=== PATIENT | male | born 1945 | race Caucasian/White ===

== ENCOUNTER → 2016-07-07 | Outpatient (CLI) | payer MEDICARE, OTHER ==
[2016-07-07 09:28] LABS: ABSOLUTE EOSINOPHILS # (AUTO) 0.2 10^3/uL (0.0-0.6); ABSOLUTE LYMPHOCYTES (AUTO) 1.1 10^3/uL (0.5-4.7); ABSOLUTE MONOCYTES (AUTO) 0.6 10^3/uL (0.1-1.4); BASOPHILS % (AUTO) 0.7 % (0-2); EOSINOPHILS % (AUTO) 4.2 % (0-6); HEMATOCRIT 35.4 % (37.9-51.0); HEMOGLOBIN 12.2 g/dL (13.5-17.0); HGB HCT DIFFERENCE 1.2; LYMPHOCYTES % (AUTO) 22.9 % (13-45); MEAN CORPUSCULAR HEMOGLOBIN 30.7 pg (27.0-33.4); MEAN CORPUSCULAR HGB CONC 34.4 g/dL (32.0-36.0); MEAN CORPUSCULAR VOLUME 89 fl (80-97); MONOCYTES % (AUTO) 11.2 % (3-13); RED BLOOD COUNT 3.98 10^6/uL (4.35-5.55); RED CELL DISTRIBUTION WIDTH 14.3 % (11.5-14.0); WHITE BLOOD COUNT 4.9 10^3/uL (4.0-10.5)
[2016-07-07 10:05] LABS: ALANINE AMINOTRANSFERASE 27 U/L (21-72); ALBUMIN 4.7 g/dL (3.5-5.0); ALKALINE PHOSPHATASE 47 U/L (38-126); ANION GAP 13 (5-19); ASPARTATE AMINO TRANSFERASE 30 U/L (17-59); BILIRUBIN,DIRECT 0.3 mg/dL (0.0-0.4); BILIRUBIN,TOTAL 0.7 mg/dL (0.2-1.3); BLOOD UREA NITROGEN 14 mg/dL (7-20); CALCIUM 9.7 mg/dL (8.4-10.2); CARBON DIOXIDE 27 mmol/L (22-30); CHLORIDE 101 mmol/L (98-107); CHOLESTEROL 141.28 mg/dL (0-200); CREATININE RESULT 1.05 mg/dL (0.52-1.25); Direct HDL 52 mg/dL (>40); GLUCOSE 89 mg/dL (75-110); POTASSIUM 4.3 mmol/L (3.6-5.0); SODIUM 140.8 mmol/L (137-145); TOTAL PROTEIN 7.8 g/dL (6.3-8.2); TRIGLYCERIDES 101 mg/dL (<150)
[2016-07-07 10:16] LABS: DIRECT LDL 58 mg/dL (<100)
== END ==
LOC: OD 08:36
PROVIDERS: ATTEND Internal Medicine
DX: I25.10 Atherosclerotic heart disease of native coronary artery without angina pectoris (principal); I10 Essential (primary) hypertension; E78.5 Hyperlipidemia, unspecified; R53.82 Chronic fatigue, unspecified; R35.1 Nocturia; M10.9 Gout, unspecified
CPT/HCPCS: 36415; 80053; 80061; 84153; 84443; 85025

== ENCOUNTER → 2017-04-12 | Outpatient (CLI) | payer MEDICARE, OTHER ==
[2017-04-12 11:19] LABS: ABSOLUTE BASOPHILS # (AUTO) 0.1 10^3/uL (0.0-0.2); ABSOLUTE EOSINOPHILS # (AUTO) 0.6 10^3/uL (0.0-0.6); ABSOLUTE LYMPHOCYTES (AUTO) 1.7 10^3/uL (0.5-4.7); ABSOLUTE MONOCYTES (AUTO) 0.7 10^3/uL (0.1-1.4); ABSOLUTE NEUT (AUTO) 3.6 10^3/uL (1.7-8.2); EOSINOPHILS % (AUTO) 8.6 % (0-6); HEMATOCRIT 37.2 % (37.9-51.0); HEMOGLOBIN 12.7 g/dL (13.5-17.0); LYMPHOCYTES % (AUTO) 25.6 % (13-45); MEAN CORPUSCULAR HEMOGLOBIN 30.6 pg (27.0-33.4); MEAN CORPUSCULAR HGB CONC 34.2 g/dL (32.0-36.0); MEAN CORPUSCULAR VOLUME 89 fl (80-97); MONOCYTES % (AUTO) 10.4 % (3-13); PLATELET COUNT 179 10^3/uL (150-450); RED BLOOD COUNT 4.16 10^6/uL (4.35-5.55); RED CELL DISTRIBUTION WIDTH 14.3 % (11.5-14.0); SEGMENTED NEUTROPHILS % (AUTO) 54.4 % (42-78); TOTAL CELLS COUNTED % (AUTO) 100 %; WHITE BLOOD COUNT 6.6 10^3/uL (4.0-10.5)
[2017-04-12 11:48] LABS: ALANINE AMINOTRANSFERASE 24 U/L (21-72); ALBUMIN 4.9 g/dL (3.5-5.0); ALKALINE PHOSPHATASE 45 U/L (38-126); ANION GAP 11 (5-19); ASPARTATE AMINO TRANSFERASE 28 U/L (17-59); BILIRUBIN,DIRECT 0.4 mg/dL (0.0-0.4); BILIRUBIN,TOTAL 0.4 mg/dL (0.2-1.3); BLOOD UREA NITROGEN 15 mg/dL (7-20); CALCIUM 9.9 mg/dL (8.4-10.2); CARBON DIOXIDE 29 mmol/L (22-30); CHLORIDE 103 mmol/L (98-107); CHOLESTEROL 148.21 mg/dL (0-200); GLUCOSE 86 mg/dL (75-110); POTASSIUM 3.9 mmol/L (3.6-5.0); SODIUM 142.9 mmol/L (137-145); TOTAL PROTEIN 7.9 g/dL (6.3-8.2); TRIGLYCERIDES 154 mg/dL (<150)
[2017-04-12 11:58] LABS: DIRECT LDL 67 mg/dL (<100)
[2017-04-12 12:15] LABS: VLDL CHOLESTEROL 30.8 mg/dL (10-31)
== END ==
LOC: OD 09:29
PROVIDERS: ATTEND Internal Medicine
DX: I25.10 Atherosclerotic heart disease of native coronary artery without angina pectoris (principal); E78.5 Hyperlipidemia, unspecified; N40.0 Benign prostatic hyperplasia without lower urinary tract symptoms; R35.1 Nocturia; I10 Essential (primary) hypertension
CPT/HCPCS: 36415; 80053; 80061; 84153; 84443; 85025

== ENCOUNTER → 2017-06-06 | Outpatient (CLI) | payer MEDICARE, OTHER ==
[2017-06-07 07:48] LABS: PROSTATE SPECIFIC ANTIGEN 4.3 ng/mL (0.0-4.0); PSA % FREE 19.3 % (.); PSA FREE 0.83 ng/mL
== END ==
LOC: OD 08:10
PROVIDERS: ATTEND Urology
DX: R97.20 Elevated prostate specific antigen [PSA] (principal)
CPT/HCPCS: 36415; 84154

== ENCOUNTER 2017-08-20 12:30 | Observation (INO) | payer MEDICARE, OTHER ==
[2017-08-20] MEDS ORDERED: LISINOPRIL 10 MG TABLET PO ONE (13:00)
[2017-08-20] MEDS ORDERED: ASPIRIN 81 MG TABLET, CHEWABLE PO ONE ×2 (13:00→17:37)
--- NOTE | 2017-08-20 13:03 | ER Document Report ---
ED Medical Screen (RME) - General Chief Complaint: Chest Pain Stated Complaint: BLOOD PRESSURE ISSUES Time Seen by Provider: 08/20/17 12:39 Mode of Arrival: Ambulatory Information source: Patient Notes: This is a pleasant 71-year-old male with a 2 of hypertension, dyslipidemia, coronary artery disease (VT/CABG in 2011), AAA repair. Patient presents to the emergency room with complaints of "just not feeling right" in the setting of an elevated blood pressure. Patient denies chest pain or shortness of breath. He does report that in 2011 when he had his heart attack, he did not have any chest pain or shortness of breath and he just did not feel right at that time. Past surgical history: Radical jaw surgery for throat/thyroid cancer CABG AAA repair Number care physician: Tay Barrow MD TRAVEL OUTSIDE OF THE [place] IN LAST 30 DAYS: No - Related Data Allergies/Adverse Reactions: No Known Allergies Allergy (Verified 08/20/17 12:31) Past Medical History - Social History Chew tobacco use (# tins/day): No Frequency of alcohol use: None Drug Abuse: None - Past Medical History Cardiac Medical History: Reports: Hx Coronary Artery Disease, Hx Heart Attack - 05/2011, Hx Hypercholesterolemia, Hx Hypertension, Hx Peripheral Vascular Disease - Leaking left iliac artery aneurysm Renal/ Medical History: Denies: Hx Peritoneal Dialysis Past Surgical History: Reports: Hx Cardiac Catheterization, Hx Cardiac Surgery - bypass 05/2011, Hx Coronary Artery Bypass Graft, Hx Orthopedic Surgery, Hx Vascular Surgery - Immunizations Hx Diphtheria, Pertussis, Tetanus Vaccination: Yes Physical Exam - Vital signs Vitals: Temp Pulse Resp BP Pulse Ox 98.3 F 64 16 217/84 H 98 08/20/17 12:44 08/20/17 12:44 08/20/17 12:44 08/20/17 12:44 08/20/17 12:44 Course - Vital Signs Vital signs: Temp Pulse Resp BP Pulse Ox 98.3 F 64 16 217/84 H 98 08/20/17 12:44 08/20/17 12:44 08/20/17 12:44 08/20/17 12:44 08/20/17 12:44 Doctor's Discharge - Discharge Referrals: SOFIYA MAK DO [Primary Care Provider] - Follow up as needed
[2017-08-20 13:24] LABS: ABSOLUTE EOSINOPHILS # (AUTO) 0.4 10^3/uL (0.0-0.6); ABSOLUTE LYMPHOCYTES (AUTO) 1.6 10^3/uL (0.5-4.7); ABSOLUTE MONOCYTES (AUTO) 0.8 10^3/uL (0.1-1.4); ABSOLUTE NEUT (AUTO) 4.2 10^3/uL (1.7-8.2); BASOPHILS % (AUTO) 0.6 % (0-2); HEMATOCRIT 34.8 % (37.9-51.0); LYMPHOCYTES % (AUTO) 22.5 % (13-45); MEAN CORPUSCULAR HEMOGLOBIN 30.7 pg (27.0-33.4); MEAN CORPUSCULAR HGB CONC 34.5 g/dL (32.0-36.0); MEAN CORPUSCULAR VOLUME 89 fl (80-97); MONOCYTES % (AUTO) 11.5 % (3-13); PLATELET COUNT 193 10^3/uL (150-450); RED BLOOD COUNT 3.91 10^6/uL (4.35-5.55); RED CELL DISTRIBUTION WIDTH 14.2 % (11.5-14.0); SEGMENTED NEUTROPHILS % (AUTO) 59.4 % (42-78); TOTAL CELLS COUNTED % (AUTO) 100 %; WHITE BLOOD COUNT 7.1 10^3/uL (4.0-10.5)
[2017-08-20 13:37] LABS: ALANINE AMINOTRANSFERASE 26 U/L (21-72); ALBUMIN 4.7 g/dL (3.5-5.0); ALKALINE PHOSPHATASE 41 U/L (38-126); ANION GAP 13 (5-19); ASPARTATE AMINO TRANSFERASE 30 U/L (17-59); BILIRUBIN,DIRECT 0.4 mg/dL (0.0-0.4); BILIRUBIN,TOTAL 0.4 mg/dL (0.2-1.3); BLOOD UREA NITROGEN 16 mg/dL (7-20); CALCIUM 10.1 mg/dL (8.4-10.2); CARBON DIOXIDE 28 mmol/L (22-30); CHLORIDE 98 mmol/L (98-107); CREATINE KINASE 91 U/L (55-170); GLUCOSE 107 mg/dL (75-110); TOTAL PROTEIN 7.8 g/dL (6.3-8.2)
[2017-08-20 13:49] LABS: CREATINE KINASE MB 0.68 ng/mL (<4.55); TROPONIN I 0.015 ng/mL
[2017-08-20] MEDS ORDERED: HYDRALAZINE HCL INJ/PF 20 MG/1 ML SDV IV ONE ×2 (14:08→15:47)
[2017-08-20] MEDS ORDERED: LOSARTAN POTASSIUM 50 MG TABLET PO ONE (14:09)
--- NOTE | 2017-08-20 14:32 | RADIOLOGY REPORT (SQ) ---
EXAM DESCRIPTION: CHEST SINGLE VIEW COMPLETED DATE/TIME: 08/20/2017 1:35 pm REASON FOR STUDY: cp COMPARISON: 04/08/2015. FINDINGS: Single-view chest AP portable upright. Numerous overlying limiting monitor lead artifacts. Clear lungs. No pneumothorax. Stable postoperative mediastinum status post CABG. IMPRESSION: No acute cardiopulmonary disease. TECHNICAL DOCUMENTATION: JOB ID: [id number] Reading location - IP/workstation name: [email or web address]
--- NOTE | 2017-08-20 14:53 | RADIOLOGY REPORT (SQ) ---
EXAM DESCRIPTION: CT HEAD WITHOUT COMPLETED DATE/TIME: 08/20/2017 2:35 pm REASON FOR STUDY: HTN urgency COMPARISON: None. TECHNIQUE: Axial images acquired through the brain without intravenous contrast. Images reviewed wi th bone, brain and subdural windows. Additional sagittal and coronal reconstructions were generated. Images stored on PACS. All CT scanners at this facility use dose modulation, iterative reconstruction, and/or weight based d osing when appropriate to reduce radiation dose to as low as reasonably achievable (ALARA). [facility]: Dose Right [facility]: CareDose [facility]: Dose Right [facility]: Teradose 4D [facility]: Revivio RADIATION DOSE: CT Rad equipment meets quality standard of care and radiation dose reduction techniq ues were employed. CTDIvol: 53.2 mGy. DLP: 964 mGy-cm. mGy. LIMITATIONS: None. FINDINGS: VENTRICLES: Normal size and contour. CEREBRUM: No masses. No hemorrhage. No midline shift. No evidence for acute infarction. Normal gra y/white matter differentiation. No areas of low density in the white matter. CEREBELLUM: No masses. No hemorrhage. No alteration of density. No evidence for acute infarction. EXTRAAXIAL SPACES: No fluid collections. No masses. ORBITS AND GLOBE: No intra- or extraconal masses. Normal contour of globe without masses. CALVARIUM: No fracture. PARANASAL SINUSES: Patchy diffuse opacification of the ethmoid air cells. Mucosal thickening in the right maxillary sinus. No fluid to suggest acute infection. SOFT TISSUES: No mass or hematoma. OTHER: Sclerosis in the left mastoid air cells, chronic mastoiditis. IMPRESSION: 1. Chronic appearing paranasal sinus and left mastoid disease. 2. No acute intracrania l abnormality. EVIDENCE OF ACUTE STROKE: NO. COMMENT: Quality ID # [id number]: Final reports with documentation of one or more dose reduction techniques (e.g., Automated exposure control, adjustment of the mA and/or kV according to patient size, use of iterative reconstruction technique) TECHNICAL DOCUMENTATION: JOB ID: [id number] [employer]- All Rights Reserved Reading location - IP/workstation name: [email or web address]
--- NOTE | 2017-08-20 15:51 | ER Document Report ---
ED General - General Chief Complaint: Chest Pain Stated Complaint: BLOOD PRESSURE ISSUES Time Seen by Provider: 08/20/17 12:39 Mode of Arrival: Ambulatory Information source: Patient TRAVEL OUTSIDE OF THE [place] IN LAST 30 DAYS: No - HPI Notes: 71-year-old male with history of hypertension, dyslipidemia, coronary disease, AAA presents to the ED with complaints of "not feeling well" with elevated blood pressure, patient states he had a similar episode of this back when he had a heart attack. Denies any trauma to the chest. Denies any shortness of breath, states he has been using a nasal spray with a decongestant, states he did have blood pressure at the time so he used it. Denies any change in level consciousness or neuro changes. Reports he does have a slight headache, has never typically have blood pressure this high. Denies fevers, chills, chest pain,palpitations, shortness of breath, dyspnea, nausea, vomiting, diarrhea, abdominal pain, hematuria,blurred vision, double vision, loss of vision, speech changes, LH, dizziness, syncope, headaches, wheezing, ST, URI, neck pain, weakness, bowel or bladder dysfunction, saddle anesthesia, numbness or tingling in bilateral upper or lower extremities equally, muscle paralysis, weakness in bilateral upper or lower extremities equally or rash. Denies IV drug use. - Related Data Allergies/Adverse Reactions: No Known Allergies Allergy (Verified 08/20/17 12:31) Past Medical History - General Information source: Patient - Social History Smoking Status: Never Smoker Chew tobacco use (# tins/day): No Frequency of alcohol use: None Drug Abuse: None Family History: Reviewed & Not Pertinent, Hyperlipidemia Patient has suicidal ideation: No Patient has homicidal ideation: No - Past Medical History Cardiac Medical History: Reports: Hx Coronary Artery Disease, Hx Heart Attack - 05/2011, Hx Hypercholesterolemia, Hx Hypertension, Hx Peripheral Vascular Disease - Leaking left iliac artery aneurysm Renal/ Medical History: Denies: Hx Peritoneal Dialysis Past Surgical History: Reports: Hx Cardiac Catheterization, Hx Cardiac Surgery - bypass 05/2011, Hx Coronary Artery Bypass Graft, Hx Orthopedic Surgery, Hx Vascular Surgery - Immunizations Hx Diphtheria, Pertussis, Tetanus Vaccination: Yes Review of Systems - Review of Systems Constitutional: See HPI EENT: No symptoms reported Cardiovascular: See HPI Respiratory: No symptoms reported Gastrointestinal: No symptoms reported Genitourinary: No symptoms reported Male Genitourinary: No symptoms reported Musculoskeletal: No symptoms reported Skin: No symptoms reported Hematologic/Lymphatic: No symptoms reported Neurological/Psychological: No symptoms reported Physical Exam - Vital signs Vitals: Temp Pulse Resp BP Pulse Ox 98.3 F 64 16 217/84 H 98 08/20/17 12:44 08/20/17 12:44 08/20/17 12:44 08/20/17 12:44 08/20/17 12:44 - Notes Notes: PHYSICAL EXAMINATION: GENERAL: Well-appearing, well-nourished and in no acute distress. HEAD: Atraumatic, normocephalic. EYES: Pupils equal round and reactive to light, extraocular movements intact, sclera anicteric, conjunctiva are normal. ENT: Nares patent, oropharynx clear without exudates. Moist mucous membranes. Old post surgical scar from debulking keloid on left chin. NECK: Normal range of motion, supple without lymphadenopathy LUNGS: Breath sounds clear to auscultation bilaterally and equal. No wheezes rales or rhonchi. HEART: Regular rate and rhythm without murmurs ABDOMEN: Soft, nontender, nondistended abdomen. No guarding, no rebound. No masses appreciated. Musculoskeletal: Normal range of motion, no pitting or edema. No cyanosis. NEUROLOGICAL: Cranial nerves grossly intact. Normal speech, normal gait. Normal sensory, motor exams. PERRLA, EOMI. Full motor and sensory function throughout. [employer]ician + 2 equal bilaterally in BUE. Tongue midline. No pronator drift. No ataxia. Neck with APROM. Raises eyebrows. Strength is 5 out of 5 in bilateral upper and lower extremities equally.Speaks in full sentences. No weakness on one side. Romberg gait steady able to walk straight line. Able to recall 5 objects. PSYCH: Normal mood, normal affect. SKIN: Warm, Dry, normal turgor, no rashes or lesions noted. Course - Re-evaluation Re-evalutation: 08/20/17 17:59 71-year-old male here for evaluation of "feeling quite right" appears to be hypertensive urgency, 10 mg of lisinopril given orally in triage, blood pressure still remains above 200 systolically 10 mg of hydralazine given IVP, patient's blood pressure still stayed elevated, patient given 50 mg of losartan orally as well as 10 mg IVP of hydralazine. Patient's blood pressure did decrease, patient states his headache did feel better. CT head negative for any acute stroke. CBC negative for leukocytosis or anemia, CMP negative for renal or hepatic dysfunction, chest x-ray negative for acute findings. First set of cardiac enzymes 0.015, discussed with patient that he needs to stay for repeat troponin for trending, repeat troponin 0.030, I do think is appropriate to admit patient for observation to trend troponins as well as blood pressure patient states he had similar instances of this occurring prior to his previous heart attack. Consulted Dr. Esquivel on July, hospitalist at 1 1755, discussed pertinent laboratory, diagnostic and clinical findings, will admit to medical service for unhypertensive urgency as well as monitoring troponins. - Vital Signs Vital signs: Temp Pulse Resp BP Pulse Ox 98.3 F 64 18 109/60 100 08/20/17 12:44 08/20/17 12:44 08/20/17 17:01 08/20/17 17:01 08/20/17 17:01 - Laboratory Result Diagrams: 08/20/17 13:05 08/20/17 13:05 Laboratory results interpreted by me: 08/20/17 13:05 RBC 3.91 L Hgb 12.0 L Hct 34.8 L RDW 14.2 H Discharge - Discharge Clinical Impression: Hypertensive urgency, Unstable angina Condition: Stable Disposition: ADMITTED OBSERVATION Admitting Provider: Hospitalist - Dr. Esquivel Onime Unit Admitted: Telemetry Referrals: SOFIYA MAK DO [APRYL GALAN] - Follow up as needed
--- NOTE | 2017-08-20 18:59 | PDOC H&P ---
History of Present Illness Admission Date/PCP: 08/20/17 18:06 KAYLIE BANERJEE, Patient complains of: "Not feeling well" History of Present Illness: NICA HERNANDEZ is a 71 year old male history of coronary artery disease status post CABG in May 2011, hypertension, peripheral vascular disease. Patient reports he has generally been doing well. He woke up this morning about 5 AM and did not quite feel himself. He denies chest pain, no shortness of breath, no palpitations. He felt some numbness in his legs, thinks it may have been the way he slept. This quickly resolved. He went to see his friend who is a physician and had his blood pressure checked. He is not sure what the reading was. Told to come to the ED to be checked out. In the ED blood pressure was elevated at 213/99. He was treated with lisinopril 10mg po and then IV hydralazine 10 mg and blood pressure improved to 109. EKG was unremarkable. Troponin negative 2. Head CT was done and this was negative. Patient reports compliance with his medications. ED physician was concerned that troponin went from 0.01 to 0.03 and patient was referred to the hospitalist service to admit to observation. Again patient adamantly denies chest pain. No nausea vomiting. States he has congestion but has been battling sinus problems for a long time. Denies headache. No orthopnea or PND, no lower extremities weakness or swelling. Denies rectal bleeding, no dysuria polyuria, no urinary frequency. We will admit patient to 24 hours observation. Patient's PCP is Dr. Kaylie Banerjee. Past Medical History Cardiac Medical History: Reports: Coronary Artery Disease, Myocardial Infarction - 05/2011, Hyperlipidema, Hypertension, Peripheral Vascular Disease - Leaking left iliac artery aneurysm Past Surgical History Past Surgical History: Reports: Cardiac Catheterization, Coronary Artery Bypass Graft, Orthopedic Surgery, Vascular Surgery Social History Smoking Status: Never Smoker - Advance Directive Resuscitation Status: Full Code Family History Family History: Reviewed & Not Pertinent, Hyperlipidemia Parental Family History Reviewed: Yes Children Family History Reviewed: Yes Sibling(s) Family History Reviewed.: Yes Medication/Allergy Home Medications: Aspirin [Aspirin 81 mg Chewable Tablet] 81 mg PO DAILY 12/30/14 Levothyroxine Sodium 25 mcg PO 12/30/14 Lisinopril [Prinivil 10 mg Tablet] 10 mg PO DAILY #30 tablet 12/30/14 Metoprolol Tartrate 25 mg PO DAILY 12/30/14 Rosuvastatin Calcium [Crestor] 40 mg PO DAILY 12/30/14 Allergies/Adverse Reactions: No Known Allergies Allergy (Verified 08/20/17 12:31) Review of Systems Review of Systems: As in HPI. Otherwise negative. Physical Exam Vital Signs: Temp Pulse Resp BP Pulse Ox 98.3 F 64 18 109/60 100 08/20/17 12:44 08/20/17 12:44 08/20/17 17:01 08/20/17 17:01 08/20/17 17:01 GENERAL: Well-developed, well-nourished male, no acute distress HEENT: Normocephalic/atraumatic NECK supple, no JVD CARDIOVASCULAR: RRR, normal S1-S2, no appreciable murmur LUNGS: CTA bilaterally ABDOMEN: Soft, NT, NL bowel sounds EXTREMITIES: No edema, clubbing, cyanosis NEUROLOGICAL: Alert, oriented x 3, strength 5/5 throughout, nonfocal Results Impressions: Chest X-Ray 08/20/17 13:00 IMPRESSION: No acute cardiopulmonary disease. Head CT 08/20/17 14:10 IMPRESSION: 1. Chronic appearing paranasal sinus and left mastoid disease. 2. No acute intracranial abnormality. EVIDENCE OF ACUTE STROKE: NO. Assessment & Plan - Diagnosis (1) Hypertensive urgency Is this a current diagnosis for this admission?: Yes Plan: Blood pressure elevated at presentation 213/99, treated with lisinopril and then IV hydralazine 10 mg and blood pressure improved. We will resume patient home medications continue hydralazine as needed as needed. -We will continue to trend troponin, consider cardiology consultation if elevated or evidence of non-STEMI (2) CAD (coronary artery disease) Is this a current diagnosis for this admission?: Yes Plan: Stable. Patient currently with no chest pain. Again, will continue to trend troponin. (3) Hyperthyroidism Is this a current diagnosis for this admission?: Yes Plan: Resume home medications. Check TSH. (4) Allergic rhinitis Is this a current diagnosis for this admission?: Yes Plan: Continue outpatient regimen
[2017-08-20] MEDS ORDERED: HYDRALAZINE HCL INJ/PF 20 MG/1 ML SDV IV PRN (19:23)
[2017-08-20] MEDS ORDERED: SODIUM CHLORIDE NASAL SPRAY 44 ML NASL PRN (20:51)
[2017-08-20] MEDS ORDERED: ATORVASTATIN CALCIUM 80 MG TABLET PO SCH (22:00)
[2017-08-20] MEDS ORDERED: SODIUM CHLORIDE NASAL SPRAY 44 ML ONE (23:02)
[2017-08-21 06:55] LABS: ANION GAP 11 (5-19); BLOOD UREA NITROGEN 15 mg/dL (7-20); CALCIUM 9.6 mg/dL (8.4-10.2); CARBON DIOXIDE 26 mmol/L (22-30); CHLORIDE 102 mmol/L (98-107); GLUCOSE 92 mg/dL (75-110); POTASSIUM 4.6 mmol/L (3.6-5.0); SODIUM 139.3 mmol/L (137-145)
--- NOTE | 2017-08-21 07:23 | EKG REPORT ---
SEVERITY:- OTHERWISE NORMAL ECG - SINUS RHYTHM LOW VOLTAGE IN FRONTAL LEADS : Confirmed by: Vitor Delacruz MD 21-Aug-2017 07:22:24
--- NOTE | 2017-08-21 08:17 | PDOC DISCHARGE SUMMARY ---
General - Admit/Disc Date/PCP Admission Date/Primary Care Provider: 08/20/17 18:06 KAYLIE BANERJEE, Discharge Date: 08/21/17 - Discharge Diagnosis (1) CAD (coronary artery disease) Is this a current diagnosis for this admission?: Yes Summary: Continue current medications. Will increase the metoprolol to 25 mg twice a day and recheck the blood pressure as an outpatient. Will repeat labs and EKG. Will follow up with cardiology and consider follow-up stress test (2) Hypertension Is this a current diagnosis for this admission?: Yes Summary: Patient has been advised about low-salt diet and adjust his medications. (3) Hypertensive urgency Is this a current diagnosis for this admission?: Yes Summary: Continue low-salt diet and medications. - Additional Information Resuscitation Status: Full Code Discharge Diet: Cardiac Discharge Activity: Activity As Tolerated Home Medications: Aspirin [Aspirin 81 mg Chewable Tablet] 81 mg PO DAILY tab.chew 08/21/17 Levothyroxine Sodium [Synthroid 0.025 mg Tablet] 0.025 mg PO DAILY tablet 08/21 Lisinopril [Prinivil 10 mg Tablet] 10 mg PO DAILY tablet 08/21/17 Metoprolol Tartrate [Lopressor 25 mg Tablet] 25 mg PO BID tablet 08/21/17 History of Present Illness History of Present Illness: NICA HERNANDEZ is a 71 year old male Hospital Course Hospital Course: The patient did well after the hospitalization. He did not have any chest pain or shortness of breath. His enzymes particularly troponins have stabilized. His EKG was normal. Chest low voltage. He did not have any other complaints. His headache has resolved. He states that he was feeling well. On the day of discharge he appeared comfortable in no acute distress and wanted to go home and be discharged. Physical Exam Vital Signs: Temp Pulse Resp BP Pulse Ox 97.8 F 63 14 130/78 H 100 08/21/17 03:00 08/21/17 07:00 08/21/17 03:00 08/21/17 03:00 08/21/17 03:00 Intake & Output 08/20/17 08/21/17 08/22/17 06:59 06:59 06:59 Intake Total 295 Balance 295 Weight 63.1 kg General appearance: PRESENT: no acute distress Head exam: PRESENT: atraumatic Eye exam: PRESENT: conjunctiva pink Neck exam: ABSENT: carotid bruit, JVD Respiratory exam: PRESENT: clear to auscultation zoey Cardiovascular exam: PRESENT: RRR, +S1, +S2 Pulses: PRESENT: +1 pedal pulses bilateral GI/Abdominal exam: PRESENT: normal bowel sounds, soft Neurological exam: PRESENT: alert, awake, oriented to person, oriented to place , oriented to time Results Laboratory Results: 08/21/17 05:38 08/21/17 05:38 Sodium 139.3 Potassium 4.6 Chloride 102 Carbon Dioxide 26 Anion Gap 11 BUN 15 Creatinine 1.00 Est GFR ( Amer) > 60 Est GFR (Non-Af Amer) > 60 Glucose 92 Calcium 9.6 Magnesium 1.9 08/20/17 08/21/17 19:50 05:38 Troponin I 0.055 0.059 Impressions: Chest X-Ray 08/20/17 13:00 IMPRESSION: No acute cardiopulmonary disease. Head CT 08/20/17 14:10 IMPRESSION: 1. Chronic appearing paranasal sinus and left mastoid disease. 2. No acute intracranial abnormality. EVIDENCE OF ACUTE STROKE: NO. Qualifiers - * PATIENT BEING DISCHARGED WITH ANY OF THE FOLLOWING DIAGNOSIS: No
[2017-08-21 08:22] VITALS: BP 92/73
[2017-08-21] MEDS ORDERED: LEVOTHYROXINE SODIUM 0.025 MG TABLET PO SCH (10:00)
[2017-08-21] MEDS ORDERED: ASPIRIN 81 MG TABLET, CHEWABLE PO SCH ×2 (10:00)
[2017-08-21] MEDS ORDERED: LISINOPRIL 10 MG TABLET PO SCH (10:00)
[2017-08-21] MEDS ORDERED: ENOXAPARIN SODIUM INJ 40 MG/0.4 ML DISP.SYRIN SUBCUT SCH (10:00)
[2017-08-21] MEDS ORDERED: METOPROLOL TARTRATE 25 MG TABLET PO SCH (10:00)
== END 2017-08-21 08:58 | disposition home or self-care (01) ==
LOC: ER 12:30 → EH 18:06 → 4N 20:09
PROVIDERS: ADMIT Internal Medicine; ATTEND Internal Medicine
DX: I25.10 Atherosclerotic heart disease of native coronary artery without angina pectoris (principal); I16.0 Hypertensive urgency; I73.9 Peripheral vascular disease, unspecified; R20.0 Anesthesia of skin; I25.2 Old myocardial infarction; E78.5 Hyperlipidemia, unspecified; E05.90 Thyrotoxicosis, unspecified without thyrotoxic crisis or storm; J30.9 Allergic rhinitis, unspecified; Z79.899 Other long term (current) drug therapy; Z79.82 Long term (current) use of aspirin; Z95.1 Presence of aortocoronary bypass graft; Z98.890 Other specified postprocedural states; Z85.850 Personal history of malignant neoplasm of thyroid; Z87.898 Personal history of other specified conditions
CPT/HCPCS: 93005; 96376; 99285; 96374; 36415 ×2; 82553; 82550; 83735; 85025; 80048; 80053; 84484 ×2; 71045; 70450; 93010; G0378 ×3; A9270 ×4; J0360; J3490

== ENCOUNTER 2017-08-24 03:18 | Emergency (ER) | payer MEDICARE, OTHER ==
[2017-08-24] MEDS ORDERED: METOPROLOL TARTRATE 25 MG TABLET PO ONE (04:16)
[2017-08-24] MEDS ORDERED: LISINOPRIL 10 MG TABLET PO ONE (04:16)
--- NOTE | 2017-08-24 05:16 | ER Document Report ---
ED Blood Pressure Problem - General Chief Complaint: High Blood Pressure Stated Complaint: BLOOD PRESSURE ISSUES Time Seen by Provider: 08/24/17 03:47 Mode of Arrival: Ambulatory Information source: Patient Notes: 8-year-old male patient presents with complaint of elevated blood pressure. Patient reports that he woke up around 330 this morning because he had a dry mouth, patient states he checked his blood pressure and patient reports that his blood pressure systolic was 190. Patient has a history of hypertension and takes lisinopril 10 mg daily as well as metoprolol 25 mg twice daily. Patient was recently admitted for blood pressure issues and was discharged on these medications. Patient reports that he took his blood pressure medications yesterday as usual and that he is scheduled to take his next dose at 7 AM. Patient denies any other symptoms to include weakness, dizziness, syncopal episode, headache or fever. Patient reports that he feels fine he is just concerned that his blood pressure is high. TRAVEL OUTSIDE OF THE [place] IN LAST 30 DAYS: No - Related Data Allergies/Adverse Reactions: No Known Allergies Allergy (Verified 08/20/17 12:31) Home Medications: metoprolol, ASA, lisinopril, synthroid Past Medical History - General Information source: Patient - Social History Smoking Status: Never Smoker Chew tobacco use (# tins/day): No Frequency of alcohol use: None Drug Abuse: None Family History: Reviewed & Not Pertinent, Hyperlipidemia Patient has suicidal ideation: No Patient has homicidal ideation: No - Past Medical History Cardiac Medical History: Reports: Hx Coronary Artery Disease, Hx Heart Attack - 05/2011, Hx Hypercholesterolemia, Hx Hypertension, Hx Peripheral Vascular Disease - Leaking left iliac artery aneurysm Renal/ Medical History: Denies: Hx Peritoneal Dialysis Past Surgical History: Reports: Hx Cardiac Catheterization, Hx Cardiac Surgery - bypass 05/2011, Hx Coronary Artery Bypass Graft, Hx Orthopedic Surgery, Hx Vascular Surgery - Immunizations Hx Diphtheria, Pertussis, Tetanus Vaccination: Yes Hx Pneumococcal Vaccination: 03/13/17 Review of Systems - Review of Systems Constitutional: No symptoms reported EENT: No symptoms reported Cardiovascular: See HPI Respiratory: No symptoms reported Gastrointestinal: No symptoms reported Genitourinary: No symptoms reported Male Genitourinary: No symptoms reported Musculoskeletal: No symptoms reported Skin: No symptoms reported Hematologic/Lymphatic: No symptoms reported Neurological/Psychological: No symptoms reported Physical Exam - Vital signs Vitals: Temp Pulse Resp BP Pulse Ox 98.0 F 66 20 195/94 H 99 08/24/17 03:26 08/24/17 03:26 08/24/17 03:26 08/24/17 03:26 08/24/17 03:26 - Notes Notes: PHYSICAL EXAMINATION: GENERAL: Well-appearing, well-nourished and in no acute distress. HEAD: Atraumatic, normocephalic. Scar with facial droop to right side from previous surgery and radiation treatments, baseine for patient. EYES: Pupils equal round and reactive to light, extraocular movements intact, sclera anicteric, conjunctiva are normal. ENT: Nares patent, oropharynx clear without exudates. Moist mucous membranes. NECK: Normal range of motion, supple without lymphadenopathy LUNGS: Breath sounds clear to auscultation bilaterally and equal. No wheezes rales or rhonchi. HEART: Regular rate and rhythm without murmurs ABDOMEN: Soft, nontender, nondistended abdomen. No guarding, no rebound. No masses appreciated. Musculoskeletal: Normal range of motion, no pitting or edema. No cyanosis. NEUROLOGICAL: Cranial nerves grossly intact. Normal speech, normal gait. Normal sensory, motor exams PSYCH: Normal mood, normal affect. SKIN: Warm, Dry, normal turgor, no rashes or lesions noted. Course - Re-evaluation Re-evalutation: 71-year-old well appearing male patient presents with complaints of elevated blood pressure. On arrival patient's blood pressure is 195/94. Patient has no other symptoms and states that he feels perfectly fine. Patient denies any headache. Neuro exam was performed and is completely normal. Patient is due to take his a.m. blood pressure medications in 2 hours, will administer patient' s lisinopril 10 mg and metoprolol 25 mg tablet now and monitor patient's blood pressure. Patient's blood pressure 165/80 one hour after administration of blood pressure medications. Patient continues to be alert, oriented and asymptomatic. Plan to discharge patient home with directions to call his primary care provider, Dr. Bernal this morning and let him know that he was seen in the emergency department for elevated blood pressure. Patient instructed to not take his 7 AM dose of medications as he has already been given them. Patient verbalizes understanding and agrees to this plan. - Vital Signs Vital signs: Temp Pulse Resp BP Pulse Ox 98.0 F 66 21 H 165/80 H 98 08/24/17 03:26 08/24/17 03:26 08/24/17 05:01 08/24/17 05:01 08/24/17 05:01 Discharge - Discharge Clinical Impression: Hypertension Qualifiers: Hypertension type: unspecified Qualified Code(s): I10 - Essential (primary) hypertension Condition: Stable Disposition: HOME, SELF-CARE Additional Instructions: High Blood Pressure When your blood pressure was taken today it was elevated. Today's reading was 195/94 on arrival. Sometimes, stress or illness causes a temporary elevation of your blood pressure. We suggest that you get your blood pressure measured three more times during the next few days to see if this is more than a temporary abnormality. If your blood pressure is greater than 150/90 on each occasion, you must have treatment. Some simple things you can do to help are: If you have blood pressure medicine but aren't using it regularly, start taking it again. Get some aerobic exercise for at least 20 minutes on a daily basis. (See your doctor before beginning a new exercise program.) Eat a low-fat diet. Lose excess weight. Avoid salty foods and avoid adding salt to any of the foods you eat. Avoid diet pills, decongestants, "energizing" herbs, and other medicines that elevate blood pressure. If left untreated, hypertension greatly enhances your risk for developing heart disease and strokes. Please don't ignore this problem. You were given your morning dose of lisinopril and metoprolol. Please do not take these medications again at [address] Banerjee and let him know that you are seen in the emergency department tonight for elevated blood pressure and that your morning medications were given with resolution of your high blood pressure. Please return to the emergency department if you develop worsening symptoms such as chest pain, shortness of breath, you pass out or any other symptoms that are concerning to you. Referrals: KAYLIE BANERJEE MD [Primary Care Provider] - Follow up as needed
[2017-08-24 05:21] VITALS: BP 165/80
== END 2017-08-24 05:29 | disposition home or self-care (01) ==
LOC: ER 03:18
DX: I10 Essential (primary) hypertension (principal); I25.10 Atherosclerotic heart disease of native coronary artery without angina pectoris; E78.00 Pure hypercholesterolemia, unspecified; I25.2 Old myocardial infarction; Z95.1 Presence of aortocoronary bypass graft
CPT/HCPCS: 99283; A9270 ×2

== ENCOUNTER → 2018-05-21 | Outpatient (CLI) | payer MEDICARE, OTHER ==
[2018-05-21 10:53] LABS: ABSOLUTE EOSINOPHILS # (AUTO) 0.3 10^3/uL (0.0-0.6); ABSOLUTE LYMPHOCYTES (AUTO) 1.5 10^3/uL (0.5-4.7); ABSOLUTE MONOCYTES (AUTO) 0.7 10^3/uL (0.1-1.4); ABSOLUTE NEUT (AUTO) 3.9 10^3/uL (1.7-8.2); BASOPHILS % (AUTO) 0.6 % (0-2); EOSINOPHILS % (AUTO) 5.4 % (0-6); HEMATOCRIT 32.7 % (37.9-51.0); HEMOGLOBIN 11.4 g/dL (13.5-17.0); LYMPHOCYTES % (AUTO) 22.6 % (13-45); MEAN CORPUSCULAR HEMOGLOBIN 31.1 pg (27.0-33.4); MEAN CORPUSCULAR HGB CONC 34.8 g/dL (32.0-36.0); MEAN CORPUSCULAR VOLUME 89 fl (80-97); PLATELET COUNT 156 10^3/uL (150-450); RED BLOOD COUNT 3.66 10^6/uL (4.35-5.55); RED CELL DISTRIBUTION WIDTH 13.8 % (11.5-14.0); SEGMENTED NEUTROPHILS % (AUTO) 60.4 % (42-78); TOTAL CELLS COUNTED % (AUTO) 100 %; WHITE BLOOD COUNT 6.5 10^3/uL (4.0-10.5)
[2018-05-21 11:17] LABS: ALANINE AMINOTRANSFERASE 21 U/L (21-72); ALBUMIN 4.7 g/dL (3.5-5.0); ALKALINE PHOSPHATASE 39 U/L (38-126); ANION GAP 9 (5-19); ASPARTATE AMINO TRANSFERASE 28 U/L (17-59); BILIRUBIN,DIRECT 0.3 mg/dL (0.0-0.4); BILIRUBIN,TOTAL 0.5 mg/dL (0.2-1.3); BLOOD UREA NITROGEN 18 mg/dL (7-20); CARBON DIOXIDE 28 mmol/L (22-30); CHLORIDE 101 mmol/L (98-107); CHOLESTEROL 127.28 mg/dL (0-200); GLUCOSE 88 mg/dL (75-110); POTASSIUM 4.1 mmol/L (3.6-5.0); SODIUM 138.2 mmol/L (137-145); TOTAL PROTEIN 7.4 g/dL (6.3-8.2); TRIGLYCERIDES 131 mg/dL (<150)
[2018-05-21 11:34] LABS: DIRECT LDL 59 mg/dL (<100)
== END ==
LOC: OD 09:33
PROVIDERS: ATTEND Internal Medicine
DX: E78.5 Hyperlipidemia, unspecified (principal); I10 Essential (primary) hypertension; I25.10 Atherosclerotic heart disease of native coronary artery without angina pectoris; R35.1 Nocturia; R53.83 Other fatigue; M19.90 Unspecified osteoarthritis, unspecified site
CPT/HCPCS: 36415; 80053; 80061; 84153; 84443; 85025

== ENCOUNTER → 2019-02-25 | Outpatient (CLI) | payer MEDICARE, OTHER ==
[2019-02-25 08:57] LABS: ABSOLUTE EOSINOPHILS # (AUTO) 0.4 10^3/uL (0.0-0.6); ABSOLUTE LYMPHOCYTES (AUTO) 1.8 10^3/uL (0.5-4.7); ABSOLUTE MONOCYTES (AUTO) 0.9 10^3/uL (0.1-1.4); ABSOLUTE NEUT (AUTO) 5.7 10^3/uL (1.7-8.2); BASOPHILS % (AUTO) 0.5 % (0-2); EOSINOPHILS % (AUTO) 4.6 % (0-6); LYMPHOCYTES % (AUTO) 20.6 % (13-45); MEAN CORPUSCULAR HGB CONC 34.1 g/dL (32.0-36.0); MEAN CORPUSCULAR VOLUME 88 fl (80-97); MONOCYTES % (AUTO) 9.6 % (3-13); PLATELET COUNT 206 10^3/uL (150-450); RED BLOOD COUNT 3.99 10^6/uL (4.35-5.55); RED CELL DISTRIBUTION WIDTH 14.3 % (11.5-14.0); SEGMENTED NEUTROPHILS % (AUTO) 64.7 % (42-78); TOTAL CELLS COUNTED % (AUTO) 100 %; WHITE BLOOD COUNT 8.8 10^3/uL (4.0-10.5)
[2019-02-25 09:24] LABS: ALBUMIN 4.5 g/dL (3.5-5.0); ALKALINE PHOSPHATASE 56 U/L (38-126); ANION GAP 12 (5-19); ASPARTATE AMINO TRANSFERASE 28 U/L (17-59); BILIRUBIN,DIRECT 0.2 mg/dL (0.0-0.4); BILIRUBIN,TOTAL 0.4 mg/dL (0.2-1.3); CALCIUM 9.8 mg/dL (8.4-10.2); CARBON DIOXIDE 28 mmol/L (22-30); CHLORIDE 100 mmol/L (98-107); POTASSIUM 4.3 mmol/L (3.6-5.0); TOTAL PROTEIN 8.1 g/dL (6.3-8.2); TRIGLYCERIDES 165 mg/dL (<150)
[2019-02-25 09:26] LABS: BLOOD UREA NITROGEN 17 mg/dL (7-20); GLUCOSE 88 mg/dL (75-110)
[2019-02-25 09:35] LABS: DIRECT LDL 61 mg/dL (<100)
== END ==
LOC: OD 08:10
PROVIDERS: ATTEND Internal Medicine
DX: I25.10 Atherosclerotic heart disease of native coronary artery without angina pectoris (principal); I12.9 Hypertensive chronic kidney disease with stage 1 through stage 4 chronic kidney disease, or unspecified chronic kidney disease; N18.2 Chronic kidney disease, stage 2 (mild); E78.5 Hyperlipidemia, unspecified
CPT/HCPCS: 36415; 80053; 80061; 85025

== ENCOUNTER → 2019-12-18 | Outpatient (CLI) | payer MEDICARE, OTHER ==
[2019-12-18 10:05] LABS: ABSOLUTE EOSINOPHILS # (AUTO) 0.3 10^3/uL (0.0-0.6); ABSOLUTE LYMPHOCYTES (AUTO) 1.4 10^3/uL (0.5-4.7); ABSOLUTE MONOCYTES (AUTO) 0.8 10^3/uL (0.1-1.4); ABSOLUTE NEUT (AUTO) 3.6 10^3/uL (1.7-8.2); BASOPHILS % (AUTO) 0.6 % (0-2); EOSINOPHILS % (AUTO) 4.9 % (0-6); HEMATOCRIT 33.1 % (37.9-51.0); HEMOGLOBIN 11.5 g/dL (13.5-17.0); LYMPHOCYTES % (AUTO) 22.9 % (13-45); MEAN CORPUSCULAR HEMOGLOBIN 30.5 pg (27.0-33.4); MEAN CORPUSCULAR HGB CONC 34.8 g/dL (32.0-36.0); MEAN CORPUSCULAR VOLUME 88 fl (80-97); MONOCYTES % (AUTO) 12.8 % (3-13); PLATELET COUNT 167 10^3/uL (150-450); RED BLOOD COUNT 3.76 10^6/uL (4.35-5.55); RED CELL DISTRIBUTION WIDTH 14.4 % (11.5-14.0); SEGMENTED NEUTROPHILS % (AUTO) 58.8 % (42-78); TOTAL CELLS COUNTED % (AUTO) 100 %; WHITE BLOOD COUNT 6.2 10^3/uL (4.0-10.5)
[2019-12-18 10:25] LABS: ALBUMIN 4.6 g/dL (3.5-5.0); ALKALINE PHOSPHATASE 46 U/L (38-126); ANION GAP 10 (5-19); ASPARTATE AMINO TRANSFERASE 29 U/L (17-59); BILIRUBIN,DIRECT 0.3 mg/dL (0.0-0.4); BILIRUBIN,TOTAL 0.6 mg/dL (0.2-1.3); BLOOD UREA NITROGEN 29 mg/dL (7-20); CALCIUM 9.9 mg/dL (8.4-10.2); CARBON DIOXIDE 28 mmol/L (22-30); CHLORIDE 98 mmol/L (98-107); CHOLESTEROL 129.47 mg/dL (0-200); GLUCOSE 95 mg/dL (75-110); POTASSIUM 4.6 mmol/L (3.6-5.0); TOTAL PROTEIN 7.6 g/dL (6.3-8.2); TRIGLYCERIDES 111 mg/dL (<150)
[2019-12-18 10:35] LABS: DIRECT LDL 54 mg/dL (<100)
== END ==
LOC: OD 08:40
PROVIDERS: ATTEND Internal Medicine
DX: I25.10 Atherosclerotic heart disease of native coronary artery without angina pectoris (principal); E16.2 Hypoglycemia, unspecified; E78.5 Hyperlipidemia, unspecified; R97.20 Elevated prostate specific antigen [PSA]
CPT/HCPCS: 36415; 80053; 80061; 84153; 84443; 85025